=== PATIENT | female | born 1960 | race Caucasian/White ===

== ENCOUNTER 2021-01-07 20:42 | Emergency (ER) | payer SELFPAY ==
[~2021-01-07] VITALS: Ht 157.5 cm; Wt 68.2 kg
--- NOTE | 2021-01-07 21:15 | PHYS DOC ---
Past Medical History Past Medical History: Stroke Smoking Status: Former Smoker Alcohol Use: None Drug Use: None Social History Narrative: past amphetamine use General Adult EDM: Chief Complaint: NEURO SYMPTOMS/DEFICITS HPI: HPI: 60-year-old female presents emergency department for chest pain that she describes as tearing that began an hour ago in her home when she was sitting on her couch watching TV and numbness and tingling in the right arm, that began emergency department. Patient says that she was at home watching TV when the pain started with no inciting factors. Patient denies any changes in her routine, changes in physical activity, change in what she ate, recent illnesses. Patient had a stroke over 20 years ago, but since then has not had any type of stroke. Patient has never had any type of CAD. Patient is not aware of any other type of medical physician may have but does have high blood pressure upon present to the emergency department. Patient does have a history of smoking cigarettes and also of methamphetamine use. Patient does not smoke for 20 years and is has not used meth for 20 years either. Patient states that the pain comes and goes in her chest and feels like a tearing or ripping pain. She states that she has never had this type of cardiac pain ever in her life. The numbness and tingling that began in her left arm did start when she entered the emergency department and says that she has intact sensation and normal strength, but does feel like it is intermittently going numb. Patient does have migraines every day and recent lower back pain for which she did take ibuprofen earlier today. Review of Systems: Review of Systems: Constitutional: Denies fever or chills Eyes: Denies redness or eye pain HENT: Denies nasal congestion or sore throat Respiratory: Denies cough or shortness of breath Cardiovascular: Reports chest pain and a tearing sensation GI: Denies abdominal pain, nausea, or vomiting : Denies dysuria or hematuria Musculoskeletal: Denies back pain or joint pain Integument: Denies rash or skin lesions Neurologic: Denies headache, focal weakness or sensory changes Complete systems were reviewed and found to be within normal limits, except as documented in this note. Heart Score: C/O Chest Pain: Yes HEART Score for Chest Pain: HEART Score for Chest Pain Response (Comments) Value History Highly Suspicious 2 Age >45 - < 65 1 Risk Factors 1 or 2 Risk Factors 1 Total 4 Risk Factors: Risk Factors: DM, Current or recent (<one month) smoker, HTN, HLP, family history of CAD, obesity. Risk Scores: Score 0 - 3: 2.5% MACE over next 6 weeks - Discharge Home Score 4 - 6: 20.3% MACE over next 6 weeks - Admit for Clinical Observation Score 7 - 10: 72.7% MACE over next 6 weeks - Early Invasive Strategies Physical Exam: PE: Constitutional: Well developed, well nourished, no acute distress, non-toxic appearance HENT: Normocephalic, atraumatic Eyes: PERRL, EOMI, conjunctiva normal, no discharge Neck: Normal range of motion, no tenderness, supple Lungs & Thorax: No respiratory distress, equal chest rise and fall Abdomen: Soft, no tenderness Skin: Warm, dry, no erythema, no rash Back: No tenderness, no CVA tenderness Extremities: No tenderness, ROM intact, no edema Neurologic: Alert and oriented X 3, normal motor function, normal sensory function, no focal deficits noted Psychologic: Affect normal, judgment normal Cardiac: Tachycardic, regular rhythm, normal cap refill EKG: EK, HR 74, RR 815ms, QRS 68, QT/QTc 356/396 Radiology/Procedures: Radiology/Procedures: PROCEDURE: CT ANGIO CHEST ABD PELVIS Exam: CT of chest, abdomen and pelvis without and with contrast INDICATION: Chest and back pain TECHNIQUE: Sequential axial images through the chest, abdomen and pelvis obtained before and after the administration of 100 mL of Omni 350 IV contrast. Sagittal and coronal reformatted images were reconstructed from the axial data and reviewed. 3-D reformatted images were reconstructed from the axial data and reviewed. Comparisons: None FINDINGS: Visualized portions of the thyroid are unremarkable. No enlarged mediastinal lymph nodes are identified. Heart size is normal. No pericardial effusion. Thoracic aorta has a normal course and caliber. Pulmonary artery is not enlarged. Airways are patent. No consolidation or pneumothorax. Moderate centrilobular emphysematous change noted the upper lungs. No consolidation or pneumothorax. No suspicious lung nodules are identified. No pleural effusion or thickening. Liver, spleen, pancreas, and adrenals are unremarkable. Gallbladder is absent. No perinephric inflammation or hydronephrosis. No renal or ureteral calculi are identified. Bladder is compressed not well evaluated. Uterus is not enlarged. No abnormal adnexal mass. Diverticulosis is noted at the sigmoid colon without evidence of acute diverticulitis. Remainder large and small bowel are unremarkable. Appendix is normal. No free intra-abdominal air or fluid. No obstruction. Abdominal aorta has a normal course and caliber. Abdominal vasculature is patent. No enlarged intra-abdominal lymph nodes are identified. No suspicious osseous lesions or acute fractures. IMPRESSION: 1. Normal appearance of the aorta without evidence for dissection, aneurysm or intramural hematoma. 2. Diverticulosis without evidence of acute diverticulitis. Exposure: One or more of the following in the visualized dose reduction techniques were utilized for this examination: 1. Automated exposure control 2. Adjustment of the MA and/or KV according to patient size 3. Use of iterative of reconstructive technique Electronically signed by: Kandice Mitchell MD (01/07/2021 10:16 PM) [facility] PROCEDURE: CT HEAD WO CONTRAST Exam: CT head INDICATION: Stroke TECHNIQUE: Sequential axial images through the head were obtained without the administration of IV contrast. Comparisons: None FINDINGS: No focal parenchymal lesion or hemorrhage is identified. There is no midline shift or sulcal effacement. No acute vascular territory infarction is identified. Fisher-white distinction is preserved. The ventricular system is within normal limits without compression hydrocephalus. The basal cisterns are well maintained. The visualized portions of the paranasal sinuses and mastoid air cells are well- pneumatized. No acute fractures. IMPRESSION: No acute intracranial abnormality. Exposure: One or more of the following in the visualized dose reduction techniques were utilized for this examination: 1. Automated exposure control 2. Adjustment of the MA and/or KV according to patient size Use of iterative of reconstructive technique FOR INTERNAL CODING PURPOSES Critical result: Findings discussed with Dr. New at 01/07/2021 9:36 PM. RESULT CODE: (C) Electronically signed by: Kandice Mitchell MD (01/07/2021 9:38 PM) [facility] Course & Med Decision Making: Course & Med Decision Making Pertinent Labs and Imaging studies reviewed. (See chart for details) [] Dragon Disclaimer: Dragon Disclaimer: This electronic medical record was generated, in whole or in part, using a voice recognition dictation system. Departure Departure Impression: Primary Impression: Chest pain Qualified Codes: R07.9 - Chest pain, unspecified Additional Impression: Left upper extremity numbness Disposition: 07 AMA/ELOPED/LWBS Condition: GUARDED Referrals: ANIYAH SCHULZ MD, BRIAN N MD KATRAPATI, PRASHANTH S MD Patient Instructions: Chest Pain (Nonspecific), [id number], Discharge Against Medical Advice, Migraine Headache, [id number], Paresthesia, [id number] Additional Instructions: You have elected to be discharged against medical advice. As such you are taking upon you the risks of leaving including permanent disability and/or . If symptoms continue or change or for any other concern please present directly to the ED. Scripts Butalb/Acetaminophen/Caffeine ([id number]) 1 Each Tablet 1 EACH PO Q6HRS PRN for HEADACHE, #10 TAB Prov: MOE NEW DO 01/08/21 MOE NEW DO Jan 07, 2021 21:15
[2021-01-07 21:29] LABS: BASO % 1 % (0-3); EOS # 0.1 x10^3/uL (0.0-0.7); EOS % 1 % (0-3); HEMATOCRIT 45.6 % (36.0-47.0); HEMOGLOBIN 15.8 g/dL (12.0-15.5); LYMPH # 1.4 x10^3/uL (1.0-4.8); LYMPH % 25 % (24-48); MEAN CORPUSCULAR HEMOGLOBIN 32 pg (25-35); MEAN CORPUSCULAR HGB CONC 35 g/dL (31-37); MEAN CORPUSCULAR VOLUME 92 fL (79-100); MONO # 0.4 x10^3/uL (0.0-1.1); MONO % 8 % (0-9); NEUT # 3.6 x10^3/uL (1.8-7.7); NEUT % 65 % (31-73); PLATELET COUNT 244 x10^3/uL (140-400); RED BLOOD COUNT 4.95 x10^6/uL (3.50-5.40); RED CELL DISTRIBUTION WIDTH 12.8 % (11.5-14.5); WHITE BLOOD COUNT 5.5 x10^3/uL (4.0-11.0)
[2021-01-07 21:38] LABS: PROTHROMBIN TIME PATIENT 12.5 SEC (11.7-14.0)
--- NOTE | 2021-01-07 21:41 | RAD ---
Exam: CT head INDICATION: Stroke TECHNIQUE: Sequential axial images through the head were obtained without the administration of IV co ntrast. Comparisons: None FINDINGS: No focal parenchymal lesion or hemorrhage is identified. There is no midline shift or sulcal effaceme nt. No acute vascular territory infarction is identified. Fisher-white distinction is preserved. The ventricular system is within normal limits without compression hydrocephalus. The basal cisterns are well maintained. The visualized portions of the paranasal sinuses and mastoid air cells are well-pneumatized. No acute fractures. IMPRESSION: No acute intracranial abnormality. Exposure: One or more of the following in the visualized dose reduction techniques were utilized for this examination: 1. Automated exposure control 2. Adjustment of the MA and/or KV according to patient size Use of iterative of reconstructive technique FOR INTERNAL CODING PURPOSES Critical result: Findings discussed with Dr. Madera at 01/07/2021 9:36 PM. RESULT CODE: (C) Electronically signed by: Kandice Mitchell MD (01/07/2021 9:38 PM) [facility]
[2021-01-07 21:44] LABS: CALCIUM 8.4 mg/dL (8.5-10.1); GFR 56.9; POTASSIUM 3.9 mmol/L (3.5-5.1)
[2021-01-07] MEDS ORDERED: CONTRAST GIVEN. MC PRN (21:45)
[2021-01-07 21:47] LABS: ALBUMIN 4.1 g/dL (3.4-5.0); ALBUMIN/GLOBULIN RATIO 1.3 (1.0-1.7); MAGNESIUM 1.9 mg/dL (1.8-2.4); TOTAL PROTEIN 7.3 g/dL (6.4-8.2)
[2021-01-07] MEDS ORDERED: IOHEXOL 350 MG/ML 100 ML VIAL. IV ONE (22:00)
[2021-01-07] MEDS ORDERED: IV NORMAL SALINE 1000ML BAG 1,000 ML IV ONE (22:00)
[2021-01-07 22:10] VITALS: BP 140/83
--- NOTE | 2021-01-07 22:19 | RAD ---
Exam: CT of chest, abdomen and pelvis without and with contrast INDICATION: Chest and back pain TECHNIQUE: Sequential axial images through the chest, abdomen and pelvis obtained before and after th e administration of 100 mL of Omni 350 IV contrast. Sagittal and coronal reformatted images were abdullahi nstructed from the axial data and reviewed. 3-D reformatted images were reconstructed from the axial data and reviewed. Comparisons: None FINDINGS: Visualized portions of the thyroid are unremarkable. No enlarged mediastinal lymph nodes are identifi ed. Heart size is normal. No pericardial effusion. Thoracic aorta has a normal course and caliber. Pulmon emeli artery is not enlarged. Airways are patent. No consolidation or pneumothorax. Moderate centrilobular emphysematous change not ed the upper lungs. No consolidation or pneumothorax. No suspicious lung nodules are identified. No pleural effusion or thickening. Liver, spleen, pancreas, and adrenals are unremarkable. Gallbladder is absent. No perinephric inflammation or hydronephrosis. No renal or ureteral calculi are identified. Bladder is compressed not well evaluated. Uterus is not enlarged. No abnormal adnexal mass. Diverticulosis is noted at the sigmoid colon without evidence of acute diverticulitis. Remainder larg e and small bowel are unremarkable. Appendix is normal. No free intra-abdominal air or fluid. No obst ruction. Abdominal aorta has a normal course and caliber. Abdominal vasculature is patent. No enlarged intra-abdominal lymph nodes are identified. No suspicious osseous lesions or acute fractures. IMPRESSION: 1. Normal appearance of the aorta without evidence for dissection, aneurysm or intramural hematoma. 2. Diverticulosis without evidence of acute diverticulitis. Exposure: One or more of the following in the visualized dose reduction techniques were utilized for this examination: 1. Automated exposure control 2. Adjustment of the MA and/or KV according to patient size 3. Use of iterative of reconstructive technique Electronically signed by: Kandice Mitchell MD (01/07/2021 10:16 PM) [facility]
[2021-01-07] MEDS ORDERED: ASPIRIN ENTERIC COATED 325 MG TABLET.DR. PO ONE (23:00)
[2021-01-07] MEDS ORDERED: fentaNYL PF VIAL 100 MCG/2 ML VIAL IV ONE (23:00)
[2021-01-08] MEDS ORDERED: BUTA1TAB23 PO (00:10)
[2021-01-08] MEDS ORDERED: KETOROLAC 15 MG/ML VIAL. IVP ONE (00:30)
[2021-01-08] MEDS ORDERED: BUTALB/APAP/CAFEIN 50/325/40MG TABLET. PO ONE (00:30)
--- NOTE | 2021-01-08 07:32 | EKG ---
[facility] [address] [place] [address] Test Date: 2021-01-07 Test Time: 21:17:19 Pat Name: JETHRO SINGH Department: Room: Gender: F Overed[place] Sewer: : 1960 Requested By: MEO NEW Order Number: [id number] Reading MD: Measurements Intervals [place] Rate: 74 P: 31 [place]: 132 QRS: 24 QRSD: 68 T: 23 QT: 356 QTc: 396 Interpretive Statements SINUS RHYTHM NORMAL ECG RI6.02 No previous ECG available for comparison
== END 2021-01-08 00:17 | disposition left against medical advice (07) ==
LOC: ER 20:42
DX: R07.89 Other chest pain (principal); R20.2 Paresthesia of skin; I25.2 Old myocardial infarction; F19.90 Other psychoactive substance use, unspecified, uncomplicated; Z87.891 Personal history of nicotine dependence
CPT/HCPCS: 36415; 70450; 71275; 74174; 80053; 83690; 83735; 83880; 84484; 85025; 85610; 93005; 99285; Q9967